=== PATIENT | female | born 1945 | race Caucasian/White ===

== ENCOUNTER 2018-01-21 19:59 | Emergency (ER) | payer BC, MEDICARE ==
[2018-01-21] MEDS ORDERED: Azithromycin 250 MG Tab PO ONE (22:49)
--- NOTE | 2018-01-21 23:04 | EDM.PDOC ---
ED HPI GENERAL MEDICAL PROBLEM - General Chief Complaint: ENT Problem Stated Complaint: COLD [id number] Time Seen by Provider: 01/21/18 22:20 Source of Information: Reports: Patient History Limitations: Reports: No Limitations - History of Present Illness INITIAL COMMENTS - FREE TEXT/NARRATIVE: C/o bilateral ear pain, right greater. Woke this am with congestion and mattery eyes. No fever or cough Bilateral Ear Pain Score (Numeric/FACES): 5 - Related Data Allergies Allergy/AdvReac Type Severity Reaction Status Date / Time meperidine HCl [From Demerol] Allergy Drowsiness Verified 01/21/18 20:30 morphine Allergy Drowsiness Verified 01/21/18 20:30 Penicillins Allergy Rash Verified 01/21/18 20:30 pneumococcal vaccine Allergy Cannot Verified 01/21/18 20:30 [Pneumococcal Vaccine] Remember rofecoxib [From Vioxx] Allergy Cannot Verified 01/21/18 20:30 Remember rosuvastatin calcium Allergy Hypotension Verified 01/21/18 20:30 [From Crestor] shellfish derived Allergy Cannot Verified 01/21/18 20:30 Remember simvastatin Allergy Cannot Verified 01/21/18 20:30 Remember Sulfa (Sulfonamide Allergy Cannot Verified 01/21/18 20:30 Antibiotics) Remember Home Meds: Home Meds Calcium Carb &Gluconate/Vit D2 [Parva-David 500] 1 tab PO DAILY 10/16/13 [History] Cider Vinegar [Apple Cider Vinegar] 300 mg PO DAILY 10/16/13 [History] Fexofenadine HCl [[place] Allergy] 180 mg PO DAILY PRN 10/16/13 [History] Flaxseed Oil [Flaxseed] 1,000 mg PO DAILY 10/16/13 [History] Cameron-3 Fatty Acids/Fish Oil [Fish Oil Softgel] 1 cap PO DAILY 10/16/13 [History ] Past Medical History HEENT History: Reports: Impaired Vision Oncologic (Cancer) History: Reports: Breast - Past Surgical History GI Surgical History: Reports: Appendectomy, Bariatric Procedure, Cholecystectomy Female Surgical History: Reports: Hysterectomy Musculoskeletal Surgical History: Reports: Other (See Below) Other Musculoskeletal Surgeries/Procedures:: back surgery and arm surgery Oncologic Surgical History: Reports: Mastectomy Social & Family History - Tobacco Use Smoking Status *Q: Never Smoker Second Hand Smoke Exposure: No - Recreational Drug Use Recreational Drug Use: No ED ROS ENT - Review of Systems Review Of Systems: See Below Constitutional: Reports: No Symptoms HEENT: Reports: Ear Pain, Sinus Problem. Denies: Throat Pain Respiratory: Reports: No Symptoms Cardiovascular: Reports: No Symptoms GI/Abdominal: Reports: No Symptoms Musculoskeletal: Reports: No Symptoms Skin: Reports: No Symptoms Neurological: Reports: No Symptoms ED EXAM, ENT - Physical Exam Exam: See Below Exam Limited By: No Limitations General Appearance: Alert, Mild Distress Eye Exam: Bilateral Eye: EOMI Ears: Normal External Exam, Hearing Grossly Normal, TM Bulging (right), TM Fluid (bilaterally) Nose: Normal Inspection Mouth/Throat: Normal Inspection Head: Atraumatic, Normocephalic, Sinus Tenderness Neck: Lymphadenopathy (L), Lymphadenopathy (R). No: Thyromegaly Respiratory/Chest: No Respiratory Distress, Lungs Clear Cardiovascular: Normal Peripheral Pulses, Regular Rate, Rhythm Back: Normal Inspection Extremities: Normal Inspection Course - Vital Signs Last Recorded V/S: Last Vital Signs Temp 98.2 F 01/21/18 20:27 Pulse 75 01/21/18 20:27 Resp 18 01/21/18 20:27 BP 153/59 H 01/21/18 20:27 Pulse Ox 97 01/21/18 20:27 - Orders/Labs/Meds Meds: Medications Discontinued Medications Generic Name Dose Route Start Last Admin Trade Name Martin PRN Reason Stop Dose Admin Azithromycin 500 mg 01/21/18 22:49 01/21/18 22:53 Zithromax PO 01/21/18 22:50 500 mg ONETIME ONE Administration Departure - Departure Time of Disposition: 23:00 Disposition: Home, Self-Care 01 Condition: Good Clinical Impression: Otitis media Qualifiers: Otitis media type: serous Chronicity: acute Laterality: bilateral Recurrence: not specified as recurrent Qualified Code(s): H65.03 - Acute serous otitis media , bilateral - Discharge Information Instructions: Otitis Media, Adult, [id number] Referrals: Carmen Shore PA [Primary Care Provider] - Forms: ED Department Discharge Additional Instructions: tylenol or ibuprofen for discomfort azithromycin 250mg daily x 4 days clinic follow up if worsening
== END 2018-01-21 23:05 | disposition home or self-care (01) ==
LOC: DL.ED 19:59
DX: H65.03 Acute serous otitis media, bilateral (principal); Z88.8 Allergy status to other drugs, medicaments and biological substances; Z88.0 Allergy status to penicillin; Z88.5 Allergy status to narcotic agent; Z88.2 Allergy status to sulfonamides; Z79.899 Other long term (current) drug therapy
CPT/HCPCS: 99282; A9270; 99283